=== PATIENT | female | born 1975 | race Caucasian/White ===

== ENCOUNTER 2018-08-23 09:28 | Emergency (ER) | payer OTHER ==
[~2018-08-23] VITALS: Ht 152.4 cm; Wt 58.1 kg
[~2018-08-23 09:28] MED LIST: ADULT ASPIRIN81 MG PO
== END 2018-08-23 13:29 | disposition home or self-care (01) ==
LOC: ER 09:28
DX: K52.9 Noninfective gastroenteritis and colitis, unspecified (principal)

== ENCOUNTER 2021-10-16 10:18 | Emergency (ER) | payer OTHER ==
[~2021-10-16] VITALS: Ht 152.4 cm; Wt 64.9 kg
[2021-10-16] MEDS ORDERED: ZOFRAN8 MG PO (13:44)
[2021-10-16] MEDS ORDERED: INTESTINEX680 M1 PO (13:44)
[2021-10-16] MEDS ORDERED: PEPCID AC20 MG PO (13:44)
== END 2021-10-16 13:57 | disposition home or self-care (01) ==
LOC: ER 10:18
DX: B34.9 Viral infection, unspecified (principal); Z20.822 Contact with and (suspected) exposure to COVID-19